=== PATIENT | male | born 1930 | race Hispanic/Latino ===

== ENCOUNTER 2017-09-20 10:12 | Outpatient (CLI) | payer MEDICARE, OTHER ==
[2017-09-20] MEDS ORDERED: XYLOCAINE TOPICAL 4% TP ONE ×2 (11:01)
== END 2017-09-20 10:13 | disposition home or self-care (01) ==
LOC: WOUND 10:12
PROVIDERS: ATTEND Surgery
DX: S41.112A Laceration without foreign body of left upper arm, initial encounter (principal); E11.9 Type 2 diabetes mellitus without complications; F32.9 Major depressive disorder, single episode, unspecified; I25.10 Atherosclerotic heart disease of native coronary artery without angina pectoris; Z87.891 Personal history of nicotine dependence; Z95.1 Presence of aortocoronary bypass graft; W19.XXXA Unspecified fall, initial encounter; Y93.89 Activity, other specified; Y92.89 Other specified places as the place of occurrence of the external cause; Y99.8 Other external cause status
CPT/HCPCS: 11042; G0463

== ENCOUNTER 2017-09-27 09:11 | Outpatient (CLI) | payer MEDICARE, OTHER ==
[2017-09-27] MEDS ORDERED: XYLOCAINE TOPICAL 4% TP ONE ×2 (09:30→09:35)
== END 2017-09-27 09:12 | disposition home or self-care (01) ==
LOC: WOUND 09:11
PROVIDERS: ATTEND Surgery
DX: S41.112D Laceration without foreign body of left upper arm, subsequent encounter (principal); E11.9 Type 2 diabetes mellitus without complications; I25.10 Atherosclerotic heart disease of native coronary artery without angina pectoris; F32.9 Major depressive disorder, single episode, unspecified; Z95.1 Presence of aortocoronary bypass graft; Z87.891 Personal history of nicotine dependence; X58.XXXD Exposure to other specified factors, subsequent encounter

== ENCOUNTER 2017-10-04 10:24 | Outpatient (CLI) | payer MEDICARE, OTHER ==
[2017-10-04] MEDS ORDERED: SILVER NITRATE TP ONE ×2 (11:38→14:57)
== END 2017-10-04 10:25 | disposition home or self-care (01) ==
LOC: WOUND 10:24
PROVIDERS: ATTEND Surgery
DX: S41.112D Laceration without foreign body of left upper arm, subsequent encounter (principal); F32.9 Major depressive disorder, single episode, unspecified; I25.10 Atherosclerotic heart disease of native coronary artery without angina pectoris; Z95.1 Presence of aortocoronary bypass graft; Z87.891 Personal history of nicotine dependence; X58.XXXD Exposure to other specified factors, subsequent encounter
CPT/HCPCS: 17250; 97597

== ENCOUNTER 2017-10-11 10:27 | Outpatient (CLI) | payer MEDICARE, OTHER | END 2017-10-11 10:28 | disposition home or self-care (01) | LOC: WOUND 10:27 | PROVIDERS: ATTEND Surgery | DX: S41.112D Laceration without foreign body of left upper arm, subsequent encounter (principal); Z95.1 Presence of aortocoronary bypass graft; Z87.891 Personal history of nicotine dependence; X58.XXXD Exposure to other specified factors, subsequent encounter | CPT/HCPCS: 17250; G0463 ==

== ENCOUNTER 2017-10-18 10:41 | Outpatient (CLI) | payer MEDICARE, OTHER | END 2017-10-18 10:42 | disposition home or self-care (01) | LOC: WOUND 10:41 | PROVIDERS: ATTEND Surgery | DX: S41.112D Laceration without foreign body of left upper arm, subsequent encounter (principal); I25.10 Atherosclerotic heart disease of native coronary artery without angina pectoris; F32.9 Major depressive disorder, single episode, unspecified; Z95.1 Presence of aortocoronary bypass graft; Z87.891 Personal history of nicotine dependence; X58.XXXD Exposure to other specified factors, subsequent encounter | CPT/HCPCS: 97597 ==